=== PATIENT | female | born 1965 | race Caucasian/White ===

== ENCOUNTER 2022-03-29 01:47 | Observation (INO) ==
[2022-03-29 02:14] LABS: Basophils # (auto) 0.06 K/uL (0-0.2); Basophils % (auto) 0.9 %; Eosinophils # (auto) 0.11 K/uL (0-0.50); Eosinophils % (auto) 1.6 %; Hematocrit (blood only) 44.9 % (34.1-44.9); Hemoglobin 15.8 g/dl (12.0-16.0); Immature Granulocytes # (auto) 0.03 K/uL (0.00-0.02); Immature Granulocytes % (auto) 0.4 %; Lymphocytes # (auto) 2.49 K/uL (1.2-3.4); Lymphocytes % (auto) 36.2 %; Mean Corpuscular Hemoglobin 34.1 pg (25.0-34.0); Mean Corpuscular Hgb Conc 35.2 g/dL (32.0-36.0); Mean Corpuscular Volume 96.8 fL (80.0-100.0); Monocytes # (auto) 0.72 K/uL (0.24-0.82); Monocytes % (auto) 10.5 %; Neutrophils # (auto) 3.47 K/uL (1.4-6.5); Neutrophils % (auto) 50.4 %; Platelet Count 233 K/uL (130-400); RDW Coefficient of Variation 12.8 % (11.5-14.5); RDW Standard Deviation 45.8 fL (36.4-46.3); Red Blood Count 4.64 M/uL (3.93-5.22); White Blood Count 6.88 K/ul (4.8-10.8)
[2022-03-29] MEDS ORDERED: OPTIRAY 300 500mL IV ONE (02:16)
--- NOTE | 2022-03-29 02:22 | Emergency Department Note ---
History of Present Illness General Chief complaint: Neuro Symptoms/Deficit Stated complaint: LEFT HAND NUMB FACE GETTING NUMB Time Seen by Provider: 03/29/22 02:01 History of Present Illness 56-year-old female presents emergency department she states that she went to sleep at 8 PM this evening she woke up at midnight and she states that she had tingling to the left upper lip and her left hand. Patient denies slurred speech blurred vision difficulty walking denies headache. Patient denies any recent infection or trauma. Patient denies nausea vomiting. Patient states that yesterday she did have a family conflict that was causing her some anxiety. Patient states that upon awakening she asked her to take her to the emergency department. Patient states symptoms are resolving currently. She has no history of the same no history of hypertension or diabetes. Patient does state that she is a smoker. There are no other mitigating or alleviating factors Home Medications Medication Instructions Recorded Confirmed Type No Known Home Medications 11/23/21 03/29/22 History Allergies Allergy/AdvReac Type Severity Reaction Status Date / Time No Known Allergies Allergy Unverified 03/29/22 02:39 Past Med/Surg History Medical History (Updated 03/29/22 @ 03:19 by Alex West DO) Breast nodule Diverticulosis Excessive flatus Hyperlipidemia IFG (impaired fasting glucose) Internal hemorrhoids Nicotine dependence Surgical History Hx of tubal ligation Family History Grandmother Breast cancer Father Lung disease Denies family history of Colon cancer Ovarian cancer Prostate cancer Coronary heart disease Myocardial infarction Social History Smoking Status: Current every day smoker Cigarettes Per Day: 15; Second Hand Exposure: Yes (SPOUSE SMOKES); Hx Alcohol Use: Yes Hx Substance Use: No Preferred Language: Kiswahili Communication Ability: Effective Surveying Or Spatial Science Technician Required: No marital status: Current Living Situation: Spouse current occupational status: employed 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 Feels Safe at Home: Yes Childhood Exposure to Second-Hand Smoke: Yes Dental Care, Regularly: No Physical Activity Frequency: Does not Exercise Seatbelt Use: always Sunscreen Use: No Review of Systems A total of 10 systems reviewed and were otherwise negative Constitutional: no fever Respiratory: no cough Cardiovascular: no chest pain Gastrointestinal: no abdominal pain Neurologic: + paresthesia Physical Exam Vital Signs Vital Signs - 24 hr 03/29/22 01:49 03/29/22 02:15 03/29/22 02:30 Temperature 35.4 C L Temperature Source Temporal Artery Scan Pulse Rate 57 L 58 L 58 L Respiratory Rate 20 18 18 Respiratory Effort / Characteristics Non-Labored Spontaneous Respiratory Depth Normal Blood Pressure 208/92 H 153/109 H 179/90 H Blood Pressure Mean 130 123 119 Pulse Oximetry 96 100 100 Oxygen Delivery Method Room Air Room Air Sepsis New/Unexplained Change in Mental Status N/A Sepsis Action Taken by Nursing No Action Required 03/29/22 03:00 Temperature Temperature Source Pulse Rate 60 Respiratory Rate 20 Respiratory Effort / Characteristics Respiratory Depth Blood Pressure 140/87 Blood Pressure Mean 104 Pulse Oximetry 97 Oxygen Delivery Method Sepsis New/Unexplained Change in Mental Status Sepsis Action Taken by Nursing VITAL SIGNS - Vital signs and nursing notes were reviewed. GENERAL - no acute distress. Communicates well with provider and answers questions appropriately. SKIN - Without rashes. HEAD - NC/AT. EYES - PERRL with EOMI bilaterally. Sclera anicteric. Palpebral conjunctiva pink and moist with no injection noted. EARS - No deformities of external structures noted on gross examination bilaterally. NOSE - Midline and without cyanosis. No epistaxis or purulent drainage noted. Septum midline without deviation or septal hematoma noted. MOUTH/OROPHARYNX - Without perioral cyanosis. Buccal mucosa pink and moist and without leukoplakia. Tongue midline with equal elevation of palate bilaterally. No tonsillar hypertrophy, erythema, or exudates noted. NECK - Neck with FROM. Supple to palpation. No nuchal rigidity. LUNGS - Chest wall symmetric without accessory muscle use, intercostals retractions, or central cyanosis. Normal vesicular breath sounds CTA B/L. No wheezes, rales, or rhonchi appreciated. CARDIAC - RRR with S1/S2. No murmur, rubs, or gallops appreciated. ABDOMEN - Abdominal contour soft without pulsations or visible masses. BS normoactive all four quadrants. No tenderness, palpable masses, hepat osplenomegaly, or ascites noted. EXTREMITIES - No clubbing or peripheral cyanosis. +5/5 strength noted in UE/LE bilaterally. NEUROLOGIC - Cranial nerves II through XII grossly intact. Sensory intact to light touch throughout. NIH score is 0; there is no facial droop there is no obvious facial palsy ;she has 5 out of 5 strength in the upper and lower extremities PSYCH - A&Ox3 and cooperates fully with examiner. Pt is very pleasant and interacts well with examiner. Course Reevaluation(s) Reevaluation #1: Patient is resting in no distress. NIH is 0. Patient's blood pressure has decreased. Patient has a NIH is 0 currently nonfocal patient's not a tPA candidate. The case was discussed with Dr. Knowles for admission Time: 03:20 Administered Medications Discontinued Medications Ioversol (Optiray 300 500ml) 125 ml IV ONCE ONE Stop: 03/29/22 02:17 Last Admin: 03/29/22 02:16 Dose: 114 ml Documented By: RANDALL Medical Decision Making Medical Records Attestation: I reviewed the patient's medical records. Home Medications Current Medication List: was personally reviewed by me Laboratory Data Attestation: I reviewed the patient's lab results. Result diagrams: 03/29/22 02:00 03/29/22 02:00 Lab Results 03/29/22 03/29/22 03/29/22 Range/Units 02:00 02:00 02:00 WBC 6.88 (4.8-10.8) K/ul RBC 4.64 (3.93-5.22) M/uL Hgb 15.8 (12.0-16.0) g/dl Hct 44.9 (34.1-44.9) % MCV 96.8 (80.0-100.0) fL MCH 34.1 H (25.0-34.0) pg MCHC 35.2 (32.0-36.0) g/dL RDW Std Deviation 45.8 (36.4-46.3) fL RDW Coeff of [place]ito 12.8 (11.5-14.5) % Plt Count 233 (130-400) K/uL MPV 9.0 L (9.4-12.3) fL Immature Gran % (Auto) 0.4 % Neut % (Auto) 50.4 % Lymph % (Auto) 36.2 % [place] % (Auto) 10.5 % Eos % (Auto) 1.6 % Baso % (Auto) 0.9 % Neut # (Auto) 3.47 (1.4-6.5) K/uL Lymph # (Auto) 2.49 (1.2-3.4) K/uL [place] # (Auto) 0.72 (0.24-0.82) K/uL Eos # (Auto) 0.11 (0-0.50) K/uL Baso # (Auto) 0.06 (0-0.2) K/uL Immature Gran # (Auto) 0.03 H (0.00-0.02) K/uL PT 11.4 (9.0-12.0) Seconds INR 1.1 (0.9-1.1) APTT 29.3 (21.0-31.0) Seconds PTT Ratio 1.1 Sodium 130 L (136-145) mmol/L Potassium 4.2 (3.5-5.1) mmol/L Chloride 94 L (98-107) mmol/L Carbon Dioxide 27 (21-32) mmol/L Anion Gap 9 (3-11) BUN 9 (6-23) mg/dl Creatinine 0.84 (0.6-1.2) mg/dl Est Cr Clr Drug Dosing 61.8 ml/min Est GFR ( Amer) 88.8 ml/min Est GFR (Non-Af Amer) 76.6 ml/min BUN/Creatinine Ratio 10.7 (10-20) Glucose 96 (70-99(Fasting)) mg/dl Calcium 9.8 (8.5-10.1) mg/dl Magnesium 1.9 (1.7-2.4) mg/dl Total Bilirubin 0.7 (0.2-1.0) mg/dl AST 14 (13-39) U/L ALT 10 (7-52) U/L Alkaline Phosphatase 81 (34-104) U/L Troponin I High Sens 4.3 (0-14) pg/ml Total Protein 7.5 (6.0-8.3) gm/dl Albumin 4.5 (3.4-5.0) gm/dl Globulin 3.0 (2.5-4.0) gm/dl Albumin/Globulin Ratio 1.5 (0.9-2) Imaging Data Attestation: I personally reviewed and interpreted this imaging study as follows: ECG Data Attestation: I personally reviewed and interpreted this ECG as follows: Additional Comments: EKG interpreted by me sinus rhythm rate of 60 poor R wave progression the precordium no obvious ST segment elevation or depression normal intervals normal axis MDM Narrative Medical decision making differential diagnosis includes TIA CVA paresthesias B ell's palsy metabolic derangement anxiety hypertension. Patient was evaluated under stroke protocol Impression & Plan Brain TIA, HTN (hypertension) Discharge Plan Visit Data Chief Complaint: Neuro Symptoms/Deficit Stated Complaint: LEFT HAND NUMB FACE GETTING NUMB ED Provider: Alex West Discharge Problem: Brain TIA, HTN (hypertension) Patient Disposition: Being Evaluated by Hospitalist Forms Stand Alone Forms: My [facility] Prescriptions Prescriptions: No Action No Known Home Medications Referrals Referrals: Pro,Nazario Mancilla MD [Primary Care Provider] -
[2022-03-29 02:29] LABS: INR 1.1 (0.9-1.1); Partial Thromboplastin Ratio 1.1; Partial Thromboplastin Time 29.3 Seconds (21.0-31.0); Prothrombin Time 11.4 Seconds (9.0-12.0)
[2022-03-29 02:40] LABS: Albumin Globulin Ratio 1.5 (0.9-2); Albumin Level 4.5 gm/dl (3.4-5.0); BUN Creatinine Ratio 10.7 (10-20); Bilirubin,Total 0.7 mg/dl (0.2-1.0); Calcium 9.8 mg/dl (8.5-10.1); Creatinine Clr Calc Pharmacy 61.8 ml/min; Est GFR (African American) 88.8 ml/min; Est GFR (Non-African American) 76.6 ml/min; Magnesium 1.9 mg/dl (1.7-2.4); Potassium 4.2 mmol/L (3.5-5.1); Total Protein 7.5 gm/dl (6.0-8.3)
[2022-03-29 02:41] LABS: Troponin I High Sensitivity 4.3 pg/ml (0-14)
--- NOTE | 2022-03-29 04:02 | History & Physical Report ---
Date of Service March 29, 2022 Assessment & Plan (1) Brain TIA: Plan: 56yo with history of HLP, HTN, impaired fasting glucose and tobacco use presenting with numbness and tingling of left face and left fingertips. CT head and CTA Head and neck unremarkable -Obervation to medical with telemetry -Check MRI -Check Echo -Check A1C and lipids -Neuro checks per protocol -ASA 81mg po daily initiated -Atorvastatin 40mg po daily initiated (2) Personal history of nicotine dependence: Plan: Smoking cessation counseling ordered Nicotine patch offered - patient declines at this time (3) HTN (hypertension): Plan: No home medications -Continue to monitor F/E/N - Heart Healthy diet Ppx - SCD Code - Full Dispo -Observation to medical with telemetry AWSS - At risk protocol. Patient drinks 4-6 drinks daily. History of Present Illness Chief Complaint: TIA Primary Care Provider: Nazario Gordon MD Pam Elizondo is a 56yo female with history of HLP, tobacco use and impair ed fasting glucose presenting with numbness/tingling of the lips and fingertips. Patient went to sleep last night around 20:00, in her usual state of health. She woke around 00:00 to use the bathroom and noted numbness and tingling of the left side of her face and lips as well as numbness of the left fingertips. She denies headache, visual changes, weakness. No history of prior. No involvement of legs. Allergies Allergy/AdvReac Type Severity Reaction Status Date / Time No Known Allergies Allergy Unverified 03/29/22 02:39 Home Medications Medication Instructions Recorded Confirmed Type No Known Home Medications 11/23/21 03/29/22 History Past Med/Surg History Medical History (Updated 03/29/22 @ 03:19 by Alex West DO) Breast nodule Diverticulosis Excessive flatus Hyperlipidemia IFG (impaired fasting glucose) Internal hemorrhoids Nicotine dependence Surgical History Hx of tubal ligation Family History Grandmother Breast cancer Father Lung disease Denies family history of Colon cancer Ovarian cancer Prostate cancer Coronary heart disease Myocardial infarction Social History Smoking Status: Current every day smoker Cigarettes Per Day: 15; Second Hand Exposure: Yes (SPOUSE SMOKES); Hx Alcohol Use: Yes Hx Substance Use: No Preferred Language: Swedish Communication Ability: Effective Golf Club Facer Required: No marital status: Current Living Situation: Spouse current occupational status: employed 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 Feels Safe at Home: Yes Childhood Exposure to Second-Hand Smoke: Yes Dental Care, Regularly: No Physical Activity Frequency: Does not Exercise Seatbelt Use: always Sunscreen Use: No Review of Systems Review of Systems: All systems reviewed & are unremarkable except as noted in HPI & below Physical Exam Physical Exam: General: patient resting comfortably, NAD, non-toxic in appearance, AA&O x 4 Skin: warm, dry, intact, no rashes or lesions HEENT: NC/AT, PERRL, EOMI, anicteric sclera, conjunctiva without injection, external ear normal to inspection and nontender, nares patent, moist mucus membranes, dentition intact, no oropharyngeal lesions, neck supple, trachea midline, no LAD, no thyromegaly, no JVD Heart: +S1/S2, regular, no m/r/g Lungs: equal air entry bilaterally, no rales/rhonchi/wheezes Abd: +BS, soft, NT/ND, no masses/organomegaly/ascites Ext: warm, 2+ pulses in UE/LE bilaterally, no clubbing/cyanosis or edema Neuro: CN II - XII intact with numbness on left side of mouth, numbness, left finger tips, nonfocal, patient AA&O x 4, speech intact, no facial droop, moving all extremities on command with equal strength 5/5 Results & Data Results & Data ([facility]) Vital Signs (Past 12 Hours) Vital Signs Temp Pulse Resp BP Pulse Ox O2 Del Method 03/29/22 03:00 60 20 140/87 97 03/29/22 02:30 58 L 18 179/90 H 100 03/29/22 02:15 58 L 18 153/109 H 100 Room Air 03/29/22 01:49 35.4 C L 57 L 20 208/92 H 96 Room Air Laboratory Results Laboratory Results WBC 6.88 K/ul (4.8-10.8) 03/29/22 02:00 RBC 4.64 M/uL (3.93-5.22) 03/29/22 02:00 Hgb 15.8 g/dl (12.0-16.0) 03/29/22 02:00 Hct 44.9 % (34.1-44.9) 03/29/22 02:00 MCV 96.8 fL (80.0-100.0) 03/29/22 02:00 MCH 34.1 pg (25.0-34.0) H 03/29/22 02:00 MCHC 35.2 g/dL (32.0-36.0) 03/29/22 02:00 RDW Std Deviation 45.8 fL (36.4-46.3) 03/29/22 02:00 RDW Coeff of Betito 12.8 % (11.5-14.5) 03/29/22 02:00 Plt Count 233 K/uL (130-400) 03/29/22 02:00 MPV 9.0 fL (9.4-12.3) L 03/29/22 02:00 Immature Gran % (Auto) 0.4 % 03/29/22 02:00 Neut % (Auto) 50.4 % 03/29/22 02:00 Lymph % (Auto) 36.2 % 03/29/22 02:00 [place] % (Auto) 10.5 % 03/29/22 02:00 Eos % (Auto) 1.6 % 03/29/22 02:00 Baso % (Auto) 0.9 % 03/29/22 02:00 Neut # (Auto) 3.47 K/uL (1.4-6.5) 03/29/22 02:00 Lymph # (Auto) 2.49 K/uL (1.2-3.4) 03/29/22 02:00 [place] # (Auto) 0.72 K/uL (0.24-0.82) 03/29/22 02:00 Eos # (Auto) 0.11 K/uL (0-0.50) 03/29/22 02:00 Baso # (Auto) 0.06 K/uL (0-0.2) 03/29/22 02:00 Immature Gran # (Auto) 0.03 K/uL (0.00-0.02) H 03/29/22 02:00 PT 11.4 Seconds (9.0-12.0) 03/29/22 02:00 INR 1.1 (0.9-1.1) 03/29/22 02:00 APTT 29.3 Seconds (21.0-31.0) 03/29/22 02:00 PTT Ratio 1.1 03/29/22 02:00 Sodium 130 mmol/L (136-145) L 03/29/22 02:00 Potassium 4.2 mmol/L (3.5-5.1) 03/29/22 02:00 Chloride 94 mmol/L (98-107) L 03/29/22 02:00 Carbon Dioxide 27 mmol/L (21-32) 03/29/22 02:00 Anion Gap 9 (3-11) 03/29/22 02:00 BUN 9 mg/dl (6-23) 03/29/22 02:00 Creatinine 0.84 mg/dl (0.6-1.2) 03/29/22 02:00 Est Cr Clr Drug Dosing 61.8 ml/min 03/29/22 02:00 Est GFR ( Amer) 88.8 ml/min 03/29/22 02:00 Est GFR (Non-Af Amer) 76.6 ml/min 03/29/22 02:00 BUN/Creatinine Ratio 10.7 (10-20) 03/29/22 02:00 Glucose 96 mg/dl (70-99(Fasting)) 03/29/22 02:00 Calcium 9.8 mg/dl (8.5-10.1) 03/29/22 02:00 Magnesium 1.9 mg/dl (1.7-2.4) 03/29/22 02:00 Total Bilirubin 0.7 mg/dl (0.2-1.0) 03/29/22 02:00 AST 14 U/L (13-39) 03/29/22 02:00 ALT 10 U/L (7-52) 03/29/22 02:00 Alkaline Phosphatase 81 U/L (34-104) 03/29/22 02:00 Troponin I High Sens 4.3 pg/ml (0-14) 03/29/22 02:00 Total Protein 7.5 gm/dl (6.0-8.3) 03/29/22 02:00 Albumin 4.5 gm/dl (3.4-5.0) 03/29/22 02:00 Globulin 3.0 gm/dl (2.5-4.0) 03/29/22 02:00 Albumin/Globulin Ratio 1.5 (0.9-2) 03/29/22 02:00 SARS-CoV-2, RNA, NAAT NEGATIVE (NEGATIVE) 03/29/22 03:10 Blood Type O Positive 03/29/22 02:20 Antibody Screen NEGATIVE 03/29/22 02:20 Code Status & VTE Plan VTE Prophylaxis Plan VTE Prophylaxis will be ordered: Yes PG Care Time/CCT Total # of Minutes Spent Total Time Spent with Patient: Total time spent is greater than 50% in coordination of care (as documented) at patient's floor/unit and/or counseling patient: Coding Level of Care Code INT OBSERVATION CARE 50M LVL 2 Diagnoses Brain TIA G45.9 Personal history of nicotine dependence Z87.891 HTN (hypertension) I10
[2022-03-29] MEDS ORDERED: ONDANSETRON INJ 2 MG/ML 2 ML VIAL IV PRN (04:52)
[2022-03-29] MEDS ORDERED: LORazepam 1 MG in SYRINGE 0.5 ML IV PRN (04:52)
[2022-03-29] MEDS ORDERED: ACETAMINOPHEN 325 MG TAB PO PRN (04:52)
--- NOTE | 2022-03-29 07:22 | CT Scan Report ---
HEAD CT NONCONTRAST CT DOSE: HISTORY: Left facial and left arm numbness. Stroke Like Symptoms TECHNIQUE: Multiaxial CT images of the head were performed without the use of intravenous contrast. A utomated exposure control was utilized for this study. A dose lowering technique was utilized adheri ng to the principles of ALARA. Comparison: None. Findings: The paranasal sinuses and mastoid air cells are clear. The calvarium and skull base are int act. There is no mass, hematoma, midline shift. The ventricles and sulci are within normal limits. Th ere are small hypodensities within the left periventricular white matter, left basal ganglia, and lef t thalamus. These favor microvascular ischemic change and old infarcts. The left thalamic hypodensity could represent a subacute infarct. Impression: 1. Small hypodense focus within the left thalamus consistent with an age-indeterminate lacunar infarc t. 2. Additional small hypodensities within the left periventricular white matter favor microvascular is chemic change. ACT 112: Negative or not required by law. Electronically signed by: Georgi Soni M.D. 03/29/2022 7:20 AM
--- NOTE | 2022-03-29 07:23 | CT Scan Report ---
CT ANGIOGRAM OF THE NECK CLINICAL HISTORY: Strokelike symptoms. Left facial numbness. COMPARISON STUDY: No priors. TECHNIQUE: Following the IV administration of 114 of Optiray 300, CT angiogram of the neck was perfor med from the aortic arch to the skull base. Images are reviewed in the axial, sagittal, and coronal p lanes. 3-D MIPS images are created and assessed. IV contrast was administered without complication. A ll measurements were calculated based on NASCET criteria. A dose lowering technique was utilized adh ering to the principles of ALARA. FINDINGS: Thoracic aorta: Visualized portions of the thoracic aorta are normal in caliber. The aortic arch demo nstrates standard 3-vessel anatomy. Right carotid arterial system: The right common carotid artery is widely patent, as are the right int ernal and external carotid arteries. Left carotid arterial system: The left common carotid artery is widely patent, as are the left business development intern al and external carotid arteries. Mild calcified plaque is seen in the carotid bulb. Vertebral arteries: The vertebral arteries are widely patent bilaterally and codominant in the neck. Subclavian arteries: Widely patent bilaterally. Intracranial vasculature: The visualized intracranial vessels the skull base appear patent. Jugular veins: Widely patent bilaterally. Brain parenchyma: The visualized brain parenchyma the skull base is within normal limits. Lung apices: Emphysematous change is noted in the upper lobes. Upper lobe lung parenchyma is otherwis e clear as imaged. Soft tissues: There is a 7 mm tonsillar cyst seen on the left. The visualized pharyngeal soft tissues are otherwise normal in appearance noting angiographic phase technique. The oropharyngeal airway tyler ears widely patent. The salivary and thyroid glands are normal in appearance. No cervical lymphadenop athy is seen. Skeletal structures: The visualized calvarium at the skull base appears intact. The imaged cervical s pine is within normal limits. Sinuses and mastoids: The visualized paranasal sinuses are clear. There is trace left mastoid effusio n. The right mastoid air cells are well-pneumatized. IMPRESSION: 1. Unremarkable CT angiogram of the neck. 2. Emphysema. ACT 112: Negative or not required by law. Electronically signed by: Biju Bundy M.D. 03/29/2022 7:22 AM
--- NOTE | 2022-03-29 07:27 | CT Scan Report ---
NECK CTA HISTORY: Left-sided facial numbness. Stroke Like Symptoms TECHNIQUE: Multiaxial CT images of the neck were performed following the intravenous administration o f contrast to evaluate the major cervical vessels. Maximum intensity projection images were also obta ined. All measurements were calculated based on NASCET criteria. A dose lowering technique was utili zed adhering to the principles of ALARA. COMPARISON STUDY: None. FINDINGS: The aortic arch and proximal great vessels are widely patent. There is no significant sten osis, occlusion, or dissection identified within the bilateral common carotid, internal carotid, or v ertebral arteries. Major dural venous sinuses are patent. Incidental note is made of a persistent rig ht posterior circulation. This is considered to be a normal variant. IMPRESSION: No significant stenosis, occlusion, or dissection identified within the carotid or vertebral arteries . ACT 112: Negative or not required by law. Electronically signed by: Georgi Soni M.D. 03/29/2022 7:26 AM
[2022-03-29] MEDS ORDERED: GADOBUTROL 65ML VIAL IV ONE (07:57)
--- NOTE | 2022-03-29 08:48 | Magnetic Resonance Report ---
MRI OF THE BRAIN COMBO CLINICAL HISTORY: Tingling in the lip and left upper extremity. COMPARISON STUDY: CT of the brain dated 03/29/2022. TECHNIQUE: MRI of the brain was performed utilizing various T1 and T2-weighted sequences in the axial , sagittal, and coronal planes. Contrast-enhanced sequences were acquired following the administratio n of 5 cc of Gadavist. FINDINGS: Brain parenchyma: There is age-related involutional change noting mild subcortical and periventricula r microangiopathic disease. Chronic lacunar infarcts are noted in the anil, the left thalamus, and th e left periventricular white matter. There is no hemorrhage or mass effect. There is no restricted di ffusion to suggest acute ischemia. No enhancing mass lesion is identified on the postcontrast images. Ram-white matter differentiation is preserved. No extra-axial fluid collection is seen. The cerebel lar tonsils are normal in configuration. Ventricles, sulci, and cisterns: Prominent secondary to involutional change. Pituitary and sella: Unremarkable. Intracranial vasculature: Normal flow voids are maintained at the skull base. Orbits: The bony orbits are grossly intact. Orbital contents are normal in appearance. Sinuses and mastoids: There is a left mastoid effusion. The right mastoid air cells and the paranasal sinuses are clear. Calvarium: Unremarkable. Cervical cord: Partially visualized cervical spinal cord is normal in morphology and signal intensity . IMPRESSION: 1. No acute intracranial abnormality. 2. Chronic lacunar infarcts as above. ACT 112: Negative or not required by law. Electronically signed by: Biju Bundy M.D. 03/29/2022 8:47 AM
[2022-03-29] MEDS ORDERED: ATORVASTATIN 40 MG TAB PO SCH (09:00)
[2022-03-29] MEDS ORDERED: ASPIRIN 81 MG ECTAB PO SCH (09:00)
--- NOTE | 2022-03-29 10:53 | XCELERA ---
[id number]
--- NOTE | 2022-03-29 12:47 | Discharge Summary ---
Date of Service March 29, 2022 Admission HPI Per Admitting Provider Pam Elizondo is a 56yo female with history of HLP, tobacco use and impaired fasting glucose presenting with numbness/tingling of the lips and fingertips. Patient went to sleep last night around 20:00, in her usual state of health. She woke around 00:00 to use the bathroom and noted numbness and tingling of the left side of her face and lips as well as numbness of the left fingertips. She denies headache, visual changes, weakness. No history of prior. No involvement of legs. Principal Diagnosis 1. Lip paresthesias 2. Hyponatremia-mild, ?beer potomania Discharge Exam GENERAL: 56 yo Well-developed, well-nourished WF. NAD. LUNGS: Clear to auscultation bilaterally. No W/R/R. CARDIOVASCULAR: Regular rate and rhythm. No M/G/R. No JVD. ABDOMEN: Soft, non-tender and non-distended. BS normoactive x 4 quad. EXTREMITIES: No edema. Non-tender. Peripheral pulses +2/4. NEUROLOGIC: A&O x3. No focal neurological deficits. CN II-XII grossly intact. PSYCHIATRIC: Cooperative. Appropriate mood and affect. SKIN: Warm, dry, intact. No rashes or lesions. Discharge Data Allergies Allergy/AdvReac Type Severity Reaction Status Date / Time No Known Allergies Allergy Unverified 03/29/22 02:39 Consultations 03/29/22 03:17 ED Decision to Admit Stat Ordered Studies Head CT 03/29/22 01:[address] DOSE: HISTORY: Left facial and left arm numbness. Stroke Like Symptoms TECHNIQUE: Multiaxial CT images of the head were performed without the use of intravenous contrast. Automated exposure control was utilized for this study. A dose lowering technique was utilized adhering to the principles of ALARA. Comparison: None. Findings: The paranasal sinuses and mastoid air cells are clear. The calvarium and skull base are intact. There is no mass, hematoma, midline shift. The ventricles and sulci are within normal limits. There are small hypodensities within the left periventricular white matter, left basal ganglia, and left thalamus. These favor microvascular ischemic change and old infarcts. The left thalamic hypodensity could represent a subacute infarct. Impression: 1. Small hypodense focus within the left thalamus consistent with an age- indeterminate lacunar infarct. 2. Additional small hypodensities within the left periventricular white matter favor microvascular ischemic change. ACT 112: Negative or not required by law. Electronically signed by: Georgi Soni M.D. 03/29/2022 7:20 AM Head CTA 03/29/22 01:56 NECK CTA HISTORY: Left-sided facial numbness. Stroke Like Symptoms TECHNIQUE: Multiaxial CT images of the neck were performed following the intravenous administration of contrast to evaluate the major cervical vessels. Maximum intensity projection images were also obtained. All measurements were calculated based on NASCET criteria. A dose lowering technique was utilized adhering to the principles of ALARA. COMPARISON STUDY: None. FINDINGS: The aortic arch and proximal great vessels are widely patent. There is no significant stenosis, occlusion, or dissection identified within the bilateral common carotid, internal carotid, or vertebral arteries. Major dural venous sinuses are patent. Incidental note is made of a persistent right posterior circulation. This is considered to be a normal variant. IMPRESSION: No significant stenosis, occlusion, or dissection identified within the carotid or vertebral arteries. ACT 112: Negative or not required by law. Electronically signed by: Georgi Soni M.D. 03/29/2022 7:26 AM Neck CTA 03/29/22 01:56 CT ANGIOGRAM OF THE NECK CLINICAL HISTORY: Strokelike symptoms. Left facial numbness. COMPARISON STUDY: No priors. TECHNIQUE: Following the IV administration of 114 of Optiray 300, CT angiogram of the neck was performed from the aortic arch to the skull base. Images are reviewed in the axial, sagittal, and coronal planes. 3-D MIPS images are created and assessed. IV contrast was administered without complication. All measurements were calculated based on NASCET criteria. A dose lowering technique was utilized adhering to the principles of ALARA. FINDINGS: Thoracic aorta: Visualized portions of the thoracic aorta are normal in caliber. The aortic arch demonstrates standard 3-vessel anatomy. Right carotid arterial system: The right common carotid artery is widely patent, as are the right internal and external carotid arteries. Left carotid arterial system: The left common carotid artery is widely patent, as are the left internal and external carotid arteries. Mild calcified plaque is seen in the carotid bulb. Vertebral arteries: The vertebral arteries are widely patent bilaterally and codominant in the neck. Subclavian arteries: Widely patent bilaterally. Intracranial vasculature: The visualized intracranial vessels the skull base appear patent. Jugular veins: Widely patent bilaterally. Brain parenchyma: The visualized brain parenchyma the skull base is within normal limits. Lung apices: Emphysematous change is noted in the upper lobes. Upper lobe lung parenchyma is otherwise clear as imaged. Soft tissues: There is a 7 mm tonsillar cyst seen on the left. The visualized pharyngeal soft tissues are otherwise normal in appearance noting angiographic phase technique. The oropharyngeal airway appears widely patent. The salivary and thyroid glands are normal in appearance. No cervical lymphadenopathy is seen. Skeletal structures: The visualized calvarium at the skull base appears intact. The imaged cervical spine is within normal limits. Sinuses and mastoids: The visualized paranasal sinuses are clear. There is trace left mastoid effusion. The right mastoid air cells are well-pneumatized. IMPRESSION: 1. Unremarkable CT angiogram of the neck. 2. Emphysema. ACT 112: Negative or not required by law. Electronically signed by: Biju Bundy M.D. 03/29/2022 7:22 AM Brain MRI 03/29/22 04:52 MRI OF THE BRAIN COMBO CLINICAL HISTORY: Tingling in the lip and left upper extremity. COMPARISON STUDY: CT of the brain dated 03/29/2022. TECHNIQUE: MRI of the brain was performed utilizing various T1 and T2-weighted sequences in the axial, sagittal, and coronal planes. Contrast-enhanced sequences were acquired following the administration of 5 cc of Gadavist. FINDINGS: Brain parenchyma: There is age-related involutional change noting mild subcortical and periventricular microangiopathic disease. Chronic lacunar infarcts are noted in the anil, the left thalamus, and the left periventricular white matter. There is no hemorrhage or mass effect. There is no restricted diffusion to suggest acute ischemia. No enhancing mass lesion is identified on the postcontrast images. Ram-white matter differentiation is preserved. No extra-axial fluid collection is seen. The cerebellar tonsils are normal in configuration. Ventricles, sulci, and cisterns: Prominent secondary to involutional change. Pituitary and sella: Unremarkable. Intracranial vasculature: Normal flow voids are maintained at the skull base. Orbits: The bony orbits are grossly intact. Orbital contents are normal in appearance. Sinuses and mastoids: There is a left mastoid effusion. The right mastoid air cells and the paranasal sinuses are clear. Calvarium: Unremarkable. Cervical cord: Partially visualized cervical spinal cord is normal in morphology and signal intensity. IMPRESSION: 1. No acute intracranial abnormality. 2. Chronic lacunar infarcts as above. ACT 112: Negative or not required by law. Electronically signed by: Biju Bundy M.D. 03/29/2022 8:47 AM Echocardiogram: 03/29/22 1. Normal left ventricular size and systolic function. EF 60-65%. No regional wma. No LVH. 2. No significant valvular abnormalities visualized. 3. Agitated saline was administered however image quality was suboptimal. There was no obvious right to left inter atrial shunt. 4. Normal estimated RVSP. 5. No prior study available for comparison. Hospital Course (1) Brain TIA: 56yo with history of HLP, HTN, impaired fasting glucose and tobacco use presenting with numbness and tingling of left face and left fingertips. CT head and CTA Head and neck unremarkable -Obervation to medical with telemetry -Check MRI -Check Echo -Check A1C and lipids-lipids WNL with very high HDL -Neuro checks per protocol -ASA 81mg & Atorvastatin 40mg initiated -Imaging studies ordered with results as above. No evidence of acute cva. -Echo demonstrates no significant abnormalities. -Has some residual paresthesias, but no numbness and no focal neuro deficits on exam -Would advise f/u with pcp (2) Personal history of nicotine dependence: Smoking cessation counseling ordered Nicotine patch offered - patient declines at this time -strongly advised pt to stop smoking as this greatly increases her risk of stroke -Also drinks ETOH 4-6 drinks daily, noted Na this AM of 130, ?beer potomania (3) HTN (hypertension): -Takes no home meds -BP well controlled Plan Patient is medically and hemodynamically stable for discharge home today with outpatient f/u with her pcp within 1 week of discharge. Again, strongly advise tobacco and etoh cessation. Pt verbalized understanding. No questions asked. Plan d/w Dr. Stallings who is in agreement. Total Time Total Time Spent Total Time Spent (In Minutes): <30 minutes Discharge Plan Discharge Items Patient Disposition: Home - Self-Care Reason For Visit: ?TIA Discharge Diagnosis: lip tingling Activity: Resume your previous activity Non-emergency contact: Primary Care Provider Call non-emergency contact if: you have any medication questions and your symptoms worsen Follow-up/Referrals: Nazario Gordon MD [Primary Care Provider] - Diet: Regular Addtl Attending Provider Instructions: You were hospitalized due lip tingling which was concerning for stroke-like symptoms. Fortunately, your MRI was negative for any acute stroke. It is strongly advised that you stop smoking as this dramatically increases your risk of stroke. You could consider taking a daily baby aspirin 81mg once per day. It is advised that you follow up with your family doctor within 1 week of discharge from the hospital. If you have any questions following your discharge, you may call the nonemergency number listed on your paperwork. In the event of a medical emergency, call 911. Pending Studies at Discharge: No Stand-Alone Forms: My [facility] [employer], Smoking Cessation Medications and DC Order Prescriptions: No Action No Known Home Medications Discharge Orders: Discharge Order (Routine); Ordered 03/29/22 Ordered By: Sarah Go Admission Data Admit Date/Time: 03/29/22 03:22 Attending Provider: Talat Stallings Admit Provider: Flora Knowles Primary Care Provider: Nazario Gordon Other Providers: Flora Knowles Coding Level of Care Code None Diagnoses Brain TIA G45.9 Personal history of nicotine dependence Z87.891 HTN (hypertension) I10
--- NOTE | 2022-03-29 15:57 | Electrocardiogram Report ---
Test Reason : Blood Pressure : / mmHG Vent. Rate : 060 BPM Atrial Rate : 060 BPM P-R Int : 174 ms QRS Dur : 068 ms QT Int : 428 ms P-R-T Axes : 072 056 068 degrees QTc Int : 428 ms Poor data quality, interpretation may be adversely affected Sinus rhythm with Premature atrial complexes Anteroseptal infarct , age undetermined Abnormal ECG No previous ECGs available Confirmed by Bravo Richards ([id number]) on 03/29/2022 3:57:03 PM Referred By: REFERRED SELF Confirmed By:Bravo Richards
== END 2022-03-29 14:44 | disposition home or self-care (01) ==
LOC: ED 01:47 → 4W 01:47 → SUATTDRO 03:22 → 4W 04:46